=== PATIENT | male | born 1940 | race Caucasian/White ===

== ENCOUNTER → 2018-04-12 | Day surgery (SDC) | payer OTHER ==
[~2018-04-12] MED LIST: BUPIVACAINE 0.25% PF 10 ML VIAL ONE; EPINEPHRINE/PF 1 MG/ML AMP ONE; LIDOCAINE 1% MPF 5 ML VIAL ONE; LIDOCAINE 2% INJ, MPF 2 ML 1 ML ONE; NS 0.9% VIAL 10 ML ONE; PROPOFOL 200 MG/20 ML VIAL IV ONE; TETRACAINE HCL 0.5% 2ML OPTH ONE
[2018-04-12] MEDS: PHENYLEPHRINE 10% OPTH 5ML ONE ×3 (12:00→12:10)
[2018-04-12] MEDS: CYCLOPENTOLATE 1% OPTH 2 ML ONE ×3 (12:00→12:10)
[2018-04-12] MEDS: BSS PLUS 500 ML BOTTLE IRR ONE ×2 (12:14→12:43)
[2018-04-12] MEDS: EPINEPHRINE/PF 1 MG/ML AMP ONE ×2 (12:14→12:43)
[2018-04-12] MEDS: MOXIFLOXACIN HCL 10 DROPS/ML **OR USE OPTH ONE ×2 (12:14→12:43)
[2018-04-12] MEDS: DUOVISC 1 KIT OPTH ONE ×2 (12:14→12:43)
--- NOTE | 2018-04-12 13:22 | P.BOP ---
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
--- NOTE | 2018-04-13 00:43 | OP ---
Date of Procedure: 04/12/2018 Surgeon: Elsa Mathis MD Anesthesiologist: Kalina Townsend CRNA and Philippe Clinton M.D. Preoperative Diagnoses: Nuclear sclerotic cataract and corneal dystrophy, OD. Procedure: Phacoemulsification with intraocular lens, OD. Anesthesia: Per cataract surgery. Complications: None. Description Of Procedure: In day surgery, the patient was prepped with Betadine and draped. A conju nctival incision was made in the inferior nasal quadrant with Michael scissors. A sub-Tenon block c onsisting of a 1:1 mixture of 2% Xylocaine and 0.25% bupivacaine was placed through the conjunctival incision with a blunt cannula. A Honan balloon was placed over the eye and the patient was transferr ed to the operating room. In the operating room the patient was prepped and draped in the usual sterile fashion for ophthalmic surgery. A lid speculum was placed in the OD. Two paracentesis sites were made superiorly and infer iorly in the limbal cornea. Viscoat was placed in the anterior chamber and a crescent blade was used to make a corneal groove and tunnel, and a keratome was used to enter the anterior chamber. Provisc was placed in the anterior chamber and a 360 degree capsulotomy was performed with a cystitome. The lens was hydrodissected with BSS and rotated freely. The lens was removed with a stop and chop tech nique. A 23.64 phaco CDE was used to remove the lens. Residual cortex was removed with the irrigati on and aspiration. Provisc was placed in the capsular bag. A ZCB00 +19.5 diopter lens was placed in the capsular bag without complications. Irrigation and aspiration was used to remove residual visco elastic. The paracentesis sites were hydrated with BSS. The wound and paracentesis sites were inspe cted and found to be watertight. Vigamox 0.07 cc was placed intracamerally at the end of the procedu re. The eye was irrigated with balanced salt solution. The eye was patched with a soft cotton patch and Graham metal shield. The patient was returned to day surgery in good condition. Comments: BSS Plus was used. Extra Viscoat was used. The scleral incision was created after cuttin g the temporal conjunctiva with Michael scissors. Bipolar cautery was used at the wound and to reap proximate the conjunctiva. Discharge Instructions: Mr. Smith is discharged to home in good condition and is to follow up [facility] Dr. Mathis in the morning. NARESH/MELISSA Voice ID: [id number] Report ID: [id number]
== END | disposition home or self-care (01) ==
LOC: OR 07:28
PROVIDERS: ATTEND Ophthalmology Retina Specialist
PROC: 08RJ3JZ Replacement of Right Lens with Synthetic Substitute, Percutaneous Approach (ICD-10-PCS; principal; 2018-04-12 11:30)
DX: H25.11 Age-related nuclear cataract, right eye (principal); H18.51 Endothelial corneal dystrophy; I10 Essential (primary) hypertension; E78.00 Pure hypercholesterolemia, unspecified
CPT/HCPCS: J0171; J3490

== ENCOUNTER 2019-03-04 20:09 | Emergency (ER) | payer BC, OTHER ==
[2019-03-04 21:00] LABS: Absolute Lymphocytes (CBC) 1.6 K/uL (0.7-4.9); Basophils % 0.3 % (0-1.3); Eosinophils % 1.4 % (0-4.4); Hematocrit 44.5 % (39.6-49.0); Lymphocytes % 30.4 % (15.3-44.8); MPV 9.4 fL (7.6-11.3); Monocytes % 11.9 % (3.3-12.3); RBC Red Blood Cell Count 4.66 M/uL (4.33-5.43)
[2019-03-04 21:01] LABS: Protime INR 0.97
[2019-03-04 21:12] LABS: ALT/SGPT 24 U/L (12-78); AST/SGOT 17 U/L (15-37); Albumin 3.3 g/dL (3.4-5.0); Alkaline Phosphatase 88 U/L (45-117); BUN Blood Urea Nitrogen 24 mg/dL (7-18); Bicarbonate 26 mmol/L (21-32); Bilirubin Direct 0.1 mg/dL (0-0.2); Bilirubin Total 0.4 mg/dL (0.2-1.0); Glucose Level 148 mg/dL (74-106); Magnesium 2.3 mg/dL (1.8-2.4); NT PRO-BNP 70 pg/mL (<450); Protein, Total 6.3 g/dL (6.4-8.2); Sodium Level 142 mmol/L (136-145); Troponin (Emerg Dept Use Only) < 0.02 ng/mL (0.0-0.045)
[2019-03-04] MEDS ORDERED: NA CHLORIDE 0.9% 500 ML ONE (22:08)
--- NOTE | 2019-03-04 22:28 | EDPHYS ---
Physician Documentation [facility] Name: Luis Fernando Smith Age: 78 yrs Sex: Male : 1940 Arrival Date: 03/04/2019 Time: 20:12 Bed 27 Private MD: Vijay Khoury V ED Physician Portillo Chavez HPI: 03/04 20:46 This 78 yrs old Male presents to ER via Ambulatory with complaints of Arm snw Pain, Sweating. 20:46 The patient or guardian complains of pain, that is acute. The complaints affect the snw right bicep. Context: The problem was sustained at a while sitting at [employer], resulted from unknown cause. Onset: The symptoms/episode began/occurred suddenly. Modifying factors: The symptoms are alleviated by nothing. Associated signs and symptoms: Pertinent positives: mild dizziness and severe diaphoresis. Severity of symptoms: At their worst the symptoms were incapacitating, in the emergency department the symptoms have improved, markedly. The patient has not experienced similar symptoms in the past. The patient has not recently seen a physician, the patient's primary care provider is Dr. Dr. Khoury. Historical: - Allergies: 20:17 No Known Allergies; la1 - PMHx: 20:17 None; la1 - Immunization history:: Adult Immunizations up to date. - Social history:: Smoking status: Patient/guardian denies using tobacco. - Ebola Screening: : No symptoms or risks identified at this time. ROS: 20:43 Constitutional: Negative for fever, chills, and weight loss, Eyes: Negative for injury, snw pain, redness, and discharge, ENT: Negative for injury, pain, and discharge, Neck: Negative for injury, pain, and swelling, Cardiovascular: Negative for chest pain, palpitations, and edema, Respiratory: Negative for shortness of breath, cough, wheezing, and pleuritic chest pain, Abdomen/GI: Negative for abdominal pain, nausea, vomiting, diarrhea, and constipation, Back: Negative for injury and pain, Skin: Negative for injury, rash, and discoloration, Neuro: Negative for headache, weakness, numbness, tingling, and seizure, Psych: Negative for depression, anxiety, suicide ideation, homicidal ideation, and hallucinations. 20:43 MS/extremity: Positive for pain, of the right bicep, severe in nature that caused some dizziness and severe diaphoresis. Exam: 20:43 Constitutional: This is a well developed, well nourished patient who is awake, alert, snw and in no acute distress. Head/Face: Normocephalic, atraumatic. Eyes: Pupils equal round and reactive to light, extra-ocular motions intact. Lids and lashes normal. Conjunctiva and sclera are non-icteric and not injected. Cornea within normal limits. Periorbital areas with no swelling, redness, or edema. ENT: Nares patent. No nasal discharge, no septal abnormalities noted. Tympanic membranes are normal and external auditory canals are clear. Oropharynx with no redness, swelling, or masses, exudates, or evidence of obstruction, uvula midline. Mucous membranes moist. Neck: Trachea midline, no thyromegaly or masses palpated, and no cervical lymphadenopathy. Supple, full range of motion without nuchal rigidity, or vertebral point tenderness. No Meningismus. Chest/axilla: Normal chest wall appearance and motion. Nontender with no deformity. No lesions are appreciated. Cardiovascular: Regular rate and rhythm with a normal S1 and S2. No gallops, murmurs, or rubs. Normal PMI, no JVD. No pulse deficits. Respiratory: Lungs have equal breath sounds bilaterally, clear to auscultation and percussion. No rales, rhonchi or wheezes noted. No increased work of breathing, no retractions or nasal flaring. Abdomen/GI: Soft, non-tender, with normal bowel sounds. No distension or tympany. No guarding or rebound. No evidence of tenderness throughout. Back: No spinal tenderness. No costovertebral tenderness. Full range of motion. Skin: Warm, dry with normal turgor. Normal color with no rashes, no lesions, and no evidence of cellulitis. MS/ Extremity: Pulses equal, no cyanosis. Neurovascular intact. Full, normal range of motion. Neuro: Awake and alert, GCS 15, oriented to person, place, time, and situation. Cranial nerves II-XII grossly intact. Motor strength 5/5 in all extremities. Sensory grossly intact. Cerebellar exam normal. Normal gait. Psych: Awake, alert, with orientation to person, place and time. Behavior, mood, and affect are anxious Vital Signs: 20:17 BP 121 / 59; Pulse 68; Resp 16; Temp 97.4; Pulse Ox 98% on R/A; Weight 83.91 kg; Height la1 5 ft. 8 in. (172.72 cm); 20:40 BP 103 / 64 LA; ca1 20:40 BP 108 / 64 RA; ca1 20:40 Pulse 70; Resp 14 S; Pulse Ox 95% on R/A; ca1 22:25 BP 120 / 78; Pulse 70; Resp 16 S; Pulse Ox 97% on R/A; ca1 22:40 BP 116 / 69; Pulse 68; Resp 17 S; Temp 97.6(O); Pulse Ox 98% on R/A; ca1 20:17 Body Mass Index 28.13 (83.91 kg, 172.72 cm) la1 MDM: 20:25 Patient medically screened. snw 22:24 Data reviewed: vital signs, nurses notes. Data interpreted: Pulse oximetry: on room air snw is 95 %. Interpretation: acceptable. Counseling: I had a detailed discussion with the patient and/or guardian regarding: the historical points, exam findings, and any diagnostic results supporting the discharge/admit diagnosis, lab results, radiology results, the need for outpatient follow up, to return to the emergency department if symptoms worsen or persist or if there are any questions or concerns that arise at home. Response to treatment: the patient's symptoms have resolved after treatment. Special discussion: Based on the history and exam findings, there is no indication for further emergent testing or inpatient evaluation. I discussed with the patient/guardian the need to see the primary care provider for further evaluation of the symptoms. ED course: offered to call Dr. Khoury and admit pt for observation. Pt states he wants to go home and will return prn return of s/s or concerns.. 03/04 20:24 Order name: Basic Metabolic Panel; Complete Time: 21:13 snw 03/04 20:24 Order name: CBC with Diff; Complete Time: 21:13 snw 03/04 20:24 Order name: LFT's; Complete Time: 21:13 snw 03/04 20:24 Order name: Magnesium; Complete Time: 21:13 snw 03/04 20:24 Order name: NT PRO-BNP; Complete Time: 21:13 snw 03/04 20:24 Order name: PT-INR; Complete Time: 21:13 03/04 20:24 Order name: Bilateral blood pressure; Complete Time: 20:55 03/04 20:24 Order name: EKG; Complete Time: 20:24 03/04 20:24 Order name: Troponin (emerg Dept Use Only); Complete Time: 21:13 sn03/04 20:24 Order name: XRAY Chest (1 view) 03/04 20:32 Order name: Carotid Artery Bilateral US 03/04 20:32 Order name: CT Aorta for Dissection 03/04 20:45 Order name: CT Head Brain wo Cont 03/04 20:24 Order name: EKG - Nurse/Tech; Complete Time: 20:55 03/04 20:24 Order name: Cardiac monitoring; Complete Time: 20:55 03/04 20:24 Order name: IV Saline Lock; Complete Time: 20:55 03/04 20:24 Order name: Labs collected and sent; Complete Time: 20:55 03/04 20:24 Order name: O2 Per Protocol; Complete Time: 20:55 03/04 20:24 Order name: O2 Sat Monitoring; Complete Time: 20:55 snw Administered Medications: 21:57 Drug: NS 0.9% 500 ml Route: IV; Rate: bolus; Site: left antecubital; cr4 22:30 Follow up: Response: No adverse reaction; IV Status: Completed infusion ca1 Disposition: 03/05 04:01 Co-signature as Attending Physician, Portillo Chavez MD. Disposition: 03/04/19 22:28 Discharged to Home. Impression: Pain in right arm, Hiatal Hernia, Mild Renal Insufficiency. - Condition is Stable. - Discharge Instructions: Nonspecific Chest Pain, Hiatal Hernia, Musculoskeletal Pain, Heat Therapy. - Medication Reconciliation Form, Thank You Letter, Antibiotic Education, Prescription Opioid Use form. - Follow up: Vijay Khoury MD; When: 2 - 3 days; Reason: Recheck today's complaints, Continuance of care, Re-evaluation by your physician. Follow up: Emergency Department; When: As needed; Reason: Worsening of condition. Signatures: Dispatcher [employer] EDTammy Don, AUTO PAINTER HELPER-C AUTO PAINTER HELPER-Csnw Laura Novak, RN RN cr4 Attema, Rogelio, RN RN la1 Portillo Chavez MD MD gs Ackeith, Christie RN RN ca1 Corrections: (The following items were deleted from the chart) 03/04 22:42 22:28 03/04/2019 22:28 Discharged to Home. Impression: Pain in right arm; Hiatal ca1 Hernia; Mild Renal Insufficiency. Condition is Stable. Forms are Medication Reconciliation Form, Thank You Letter, Antibiotic Education, Prescription Opioid Use. Follow up: Vijay Khoury; When: 2 - 3 days; Reason: Recheck today's complaints, Continuance of care, Re-evaluation by your physician. Follow up: Emergency Department; When: As needed; Reason: Worsening of condition. snw
--- NOTE | 2019-03-04 22:28 | ER ---
Nurse's Notes [facility] Name: Luis Fernando Smith Age: 78 yrs Sex: Male : 1940 Arrival Date: 03/04/2019 Time: 20:12 Bed 27 Private MD: Vijay Khoury V Diagnosis: Pain in right arm;Hiatal Hernia;Mild Renal Insufficiency Presentation: 03/04 20:15 Presenting complaint: Patient states: I was at restoration about 3-40 minutes ago and got a la1 bad pain on the lateral aspect of my right upper arm. I stated to get dizzy and sweating profusely. I took a few breaths and started to feel better but I am still having some mild pain. Transition of care: patient was not received from another setting of care. Onset of symptoms was March 04, 2019. Risk Assessment: Do you want to hurt yourself or someone else? Patient reports no desire to harm self or others. Initial Sepsis Screen: Does the patient meet any 2 criteria? No. Patient's initial sepsis screen is negative. Does the patient have a suspected source of infection? No. Patient's initial sepsis screen is negative. Care prior to arrival: None. 20:15 Method Of Arrival: Ambulatory la1 20:15 Acuity: GABE 2 la1 Historical: - Allergies: 20:17 No Known Allergies; la1 - PMHx: 20:17 None; la1 - Immunization history:: Adult Immunizations up to date. - Social history:: Smoking status: Patient/guardian denies using tobacco. - Ebola Screening: : No symptoms or risks identified at this time. Screenin:40 Abuse screen: Denies threats or abuse. Denies injuries from another. Nutritional ca1 screening: No deficits noted. Tuberculosis screening: No symptoms or risk factors identified. Fall Risk IV access (20 points). Assessment: 20:40 General: Appears in no apparent distress. comfortable, Behavior is calm, cooperative, ca1 appropriate for age. Pain: Denies pain. Pain began suddenly, 1 hour ago. pt denies pain now. But an hour ago he felt pain on his R arm suddenly. a pain that he describes as pain that "he has never felt in his life before. It went away now. But at the time, he also felt cold and sweat profusely. Neuro: Level of Consciousness is awake, alert, obeys commands, Oriented to person, place, time, situation. Cardiovascular: Heart tones S1 S2 present Capillary refill < 3 seconds Patient's skin is warm and dry. Pulses are all present. Rhythm is sinus rhythm. Respiratory: Airway is patent Breath sounds are clear bilaterally. GI: Abdomen is round non-distended, Bowel sounds present X 4 quads. Abd is soft and non tender X 4 quads. Patient currently denies nausea, vomiting. : No deficits noted. No signs and/or symptoms were reported regarding the genitourinary system. EENT: No deficits noted. No signs and/or symptoms were reported regarding the EENT system. Derm: Skin is intact, is healthy with good turgor, Skin is pink, warm \\T\\ dry. Musculoskeletal: Circulation, motion, and sensation intact. Capillary refill < 3 seconds, Range of motion: intact in all extremities. 22:22 Reassessment: Patient appears in no apparent distress at this time. Patient and/or ca1 family updated on plan of care and expected duration. Pain level reassessed. Patient is alert, oriented x 3, equal unlabored respirations, skin warm/dry/pink. Tammy SURGERY ATTENDANT at bedside. 22:40 Reassessment: Patient appears in no apparent distress at this time. Patient is alert, ca1 oriented x 3, equal unlabored respirations, skin warm/dry/pink. Vital Signs: 20:17 BP 121 / 59; Pulse 68; Resp 16; Temp 97.4; Pulse Ox 98% on R/A; Weight 83.91 kg; Height la1 5 ft. 8 in. (172.72 cm); 20:40 BP 103 / 64 LA; ca1 20:40 BP 108 / 64 RA; ca1 20:40 Pulse 70; Resp 14 S; Pulse Ox 95% on R/A; ca1 22:25 BP 120 / 78; Pulse 70; Resp 16 S; Pulse Ox 97% on R/A; ca1 22:40 BP 116 / 69; Pulse 68; Resp 17 S; Temp 97.6(O); Pulse Ox 98% on R/A; ca1 20:17 Body Mass Index 28.13 (83.91 kg, 172.72 cm) la1 ED Course: 20:12 Patient arrived in ED. do 20:12 Vijay Khoury MD is Private Physician. do 20:16 Triage completed. la1 20:17 Arm band placed on right wrist. la1 20:23 Tammy Ochoa FNP-C is [facility]. snw 20:23 Portillo Chavez MD is Attending Physician. snw 20:30 Radiology exam delayed due to us tech with OUT-pt exam. sg3 20:37 Radiology exam delayed due to lab results not completed at this time. (BUN/Creatinine) vm2 IV insertion attempt and/or patient not having appropriate IV at this time. 20:39 XRAY Chest (1 view) In Process Unspecified. EDMS 20:40 Patient has correct armband on for positive identification. Placed in gown. Bed in low ca1 position. Call light in reach. Side rails up X 1. monitoring and evaluation advisor on. Pulse ox on. NIBP on. Warm blanket given. 20:40 No provider procedures requiring assistance completed. Inserted saline lock: 22 gauge ca1 in left antecubital area, using aseptic technique. Blood collected. 20:54 Christie Armijo, RN is Primary Nurse. ca1 21:07 Radiology exam delayed due to lab results not completed at this time. (BUN/Creatinine). nj 21:44 CT Aorta for Dissection In Process Unspecified. EDMS 21:44 CT Head Brain wo Cont In Process Unspecified. EDMS 22:09 Carotid Artery Bilateral US In Process Unspecified. EDMS 22:12 Ultrasound completed. Patient tolerated well. sg3 22:26 Vijay Khoury MD is Referral Physician. snw 22:41 IV discontinued, intact, bleeding controlled, No redness/swelling at site. Pressure ca1 dressing applied. Administered Medications: 21:57 Drug: NS 0.9% 500 ml Route: IV; Rate: bolus; Site: left antecubital; cr4 22:30 Follow up: Response: No adverse reaction; IV Status: Completed infusion ca1 Outcome: 22:28 Discharge ordered by . snw 22:41 Discharged to home ambulatory, with significant other. ca1 22:41 Condition: stable 22:41 Discharge instructions given to patient, Instructed on discharge instructions, follow up and referral plans. Demonstrated understanding of instructions, follow-up care. 22:42 Patient left the ED. ca1 Signatures: Dispatcher [employer] EDMS Tammy Ochoa FNP-C RIGHT OF WAY MAN-Csnw Laura Novak, RN RN cr4 Rogelio Desai RN RN la1 Claudia Wilson, Natalie Powell Sylvie Stephenson 3 Christie Armijo RN RN ca1 Corrections: (The following items were deleted from the chart) 22:12 20:30 Ultrasound completed. Patient tolerated well. sg3 sg3 22:25 21:40 Reassessment: Patient appears in no apparent distress at this time. Patient ca1 and/or family updated on plan of care and expected duration. Pain level reassessed. Patient is alert, oriented x 3, equal unlabored respirations, skin warm/dry/pink. ca1
--- NOTE | 2019-03-05 09:57 | EKG ---
Test Date: 2019-03-04 Test Time: 20:49:01 Sales Floor Team Leader: HAMILTON MEASUREMENT RESULTS: Intervals: Rate: 67 DC: 190 QRSD: 90 QT: 392 QTc: 414 [place]: P: 51 DC: 190 QRS: -9 T: 19 INTERPRETIVE STATEMENTS: Normal sinus rhythm Possible Lateral infarct, age undetermined Cannot rule out Inferior infarct, age undetermined Abnormal ECG No previous ECG available for comparison Electronically Signed On 03-05-19 09:56:40 CDT by Luis Campbell
--- NOTE | 2019-03-05 10:49 | RAD REPORT ---
EXAM DESCRIPTION: US - CP - 03/04/2019 10:08 pm CLINICAL HISTORY: DIZZINESS Headache, dizziness, drowsiness COMPARISON: EXT VENOUS UNI LTD dated 06/12/2014No comparisons TECHNIQUE: Real-time sonographic evaluation of both carotid systems was performed. Doppler interroga tion was performed with waveform tracing bilaterally. FINDINGS: Normal high resistance waveforms are noted in both external carotid arteries. The common c arotid arteries and internal carotid arteries show normal low resistance waveforms. No significant plaque formation is seen. Peak systolic and end diastolic velocity values and the ICA/ CCA ratios are in the non-hemodynamically significant range. Antegrade flow seen in both vertebral arteries. IMPRESSION: No significant atherosclerotic changes noted. No evidence of a hemodynamically significant stenosis.
--- NOTE | 2019-03-05 11:07 | RAD REPORT ---
EXAM DESCRIPTION: RAD - Chest Single View - 03/04/2019 8:39 pm CLINICAL HISTORY: CHEST PAIN Chest pain. COMPARISON: No comparisons FINDINGS: Portable technique limits examination quality. The lungs are grossly clear. The heart is normal in size. No displaced fractures. Small hiatal hernia . IMPRESSION: No acute intrathoracic process suspected.
--- NOTE | 2019-03-07 12:42 | RAD REPORT ---
EXAM DESCRIPTION: Head Brain Wo Cont CLINICAL HISTORY: 78 years Male DIZZINESS COMPARISON: None TECHNIQUE: Contiguous axial images of the brain were obtained without the administration of intraven ous contrast.This exam was performed according to our departmental dose-optimization program which in cludes use of Automated Exposure Control, adjustment of the mA and/or kV according to patient size an d/or use of iterative reconstruction technique. FINDINGS: Brain: No acute intracranial hemorrhage. No extra-axial collection. No mass effect or nataliia iation. Mild prominence of the sulci and cisterns Confluent periventricular and subcortical white m atter hypodensity is noted. Ventricles: Allowing for underlying cerebral volume loss, ventricular size appears within normal limi ts.. Globes and orbits: Prior right cataract surgery. No acute abnormality. Bones: No acute osseous finding. Paranasal sinuses: Paranasal sinuses are clear. Mastoid air cells: Well pneumatized. Soft tissues: Within normal limits IMPRESSION: No acute intracranial hemorrhage, hydrocephalus or herniation. Cerebral volume loss and chronic small vessel ischemic changes. If persistent clinical concern for ac stebbins ischemia, consider MRI brain without contrast for further evaluation. Electronically signed by: Beto Edge DO 03/04/2019 9:49 PM CDT Due to temporary technical issues with the PACS/Fluency reporting system, reports are being signed by the in house radiologist as a courtesy to ensure prompt reporting. The interpreting radiologist is f ully responsible for the content of the report.
--- NOTE | 2019-03-07 12:44 | RAD REPORT ---
EXAM DESCRIPTION: CT Chest With Intravenous Contrast. CT Abdomen and Pelvis With Intravenous Con trast. CLINICAL HISTORY: 78 years old and is Male; DISSECTION TECHNIQUE: Axial computed tomography images of the chest, abdomen and pelvis with intravenous contra st during the arterial phase of enhancement. Sagittal and coronal reformatted images were created a nd reviewed. Sagittal and coronal reformatted images were created and reviewed. This CT exam was performed using one or more of the following dose reduction techniques: automated exposure control, adjustment of the mA and/or kV according to patient size, and/or use of iterative reconstruction catia hnique. Coronal and sagittal reformatted images were created and reviewed. COMPARISON: No relevant prior studies available. FINDINGS: Limitations: None. VASCULATURE: Aorta: No significant abnormality noted. No aortic aneurysm. No dissection. Pulmonary arteries: Unremarkable as visualized. No pulmonary embolism is identified. Great vessels of aortic arch: No significant abnormality noted. No dissection. No arterial o cclusion or significant stenosis. Celiac trunk and mesenteric arteries: No significant abnormality noted. No occlusion or signif icant stenosis. Renal arteries: No significant abnormality noted. No occlusion or significant stenosis. Iliac arteries: No significant abnormality noted. No occlusion or significant stenosis. CHEST: Lungs: Linear atelectasis present in both lung bases. Pleural space: Unremarkable. No significant effusion. No pneumothorax. Heart: Unremarkable. No cardiomegaly. No significant pericardial effusion. Mediastinum: Small to moderate sliding hiatal hernia noted. ABDOMEN: Liver: There is a 3 mm triangular vascular nodule in the posterior aspect of the right hepatic l obe image 83 possibly a small flash filling hemangioma. Benign 2.2 cm diameter left hepatic lobe cy st. Gallbladder and bile ducts: Unremarkable. No calcified stones. No ductal dilation. Pancreas: Unremarkable. No ductal dilation. No mass. Spleen: Unremarkable. No splenomegaly. Adrenals: Unremarkable. No mass. Kidneys and ureters: There is a 2.2 cm diameter parapelvic cyst left kidney. Right kidney appe ars normal. No stones or hydronephrosis. No solid mass. Stomach and bowel: Moderate colonic stool present. There is colonic diverticulosis. No diver ticulitis. No obstruction. PELVIS: Appendix: No findings to suggest acute appendicitis. Bladder: Unremarkable. No mass. Reproductive: Unremarkable as visualized. CHEST, ABDOMEN and PELVIS: Intraperitoneal space: Unremarkable. No significant fluid collection. No free air. Bones/joints: Degenerative changes noted in the spine. There is lumbar stenosis L3-L4. No acute fracture. No dislocation. Soft tissues: Bilateral inguinal hernias noted containing fat. Lymph nodes: Unremarkable. No enlarged lymph nodes. IMPRESSION: 1. No aortic aneurysm or dissection. 2. Chronic changes as above. Electronically signed by: Ijeoma Muller MD 03/04/2019 10:20 PM CDT Due to temporary technical issues with the PACS/Fluency reporting system, reports are being signed by the in house radiologist as a courtesy to ensure prompt reporting. The interpreting radiologist is f ully responsible for the content of the report.
== END 2019-03-04 22:42 | disposition home or self-care (01) ==
LOC: ER 20:09
DX: M79.621 Pain in right upper arm (principal); N28.9 Disorder of kidney and ureter, unspecified; K44.9 Diaphragmatic hernia without obstruction or gangrene
CPT/HCPCS: 36415; 70450; 71045; 71275; 74175; 80048; 80076; 83735; 83880; 84484; 85025; 85610; 93005; 93880; 96360; 99284; Q9967

== ENCOUNTER 2019-05-02 07:56 | Day surgery (SDC) | payer BC, OTHER ==
[2019-05-02] MEDS ORDERED: NA CHLORIDE 0.9% 500 ML ONE (08:16)
[2019-05-02] MEDS ORDERED: PHENYLEPHRINE 10% OPTH 5ML ONE (08:16)
[2019-05-02] MEDS ORDERED: LIDOCAINE 2% MPF 5 ML VIAL ONE (08:16)
[2019-05-02] MEDS ORDERED: CYCLOPENTOLATE 1% OPTH 2 ML ONE (08:17)
[2019-05-02] MEDS ORDERED: BUPIVACAINE 0.25% PF 10 ML VIAL ONE (08:17)
[2019-05-02] MEDS ORDERED: TETRACAINE HCL 0.5% 4ML OPTH ONE (08:17)
[2019-05-02] MEDS ORDERED: LIDOCAINE HCL/PF 3.5% OPTH GEL ONE (08:24)
[2019-05-02] MEDS ORDERED: CYCLOPENTOLATE 1% OPTH 2 ML OPTH ONE ×2 (08:39→08:45)
[2019-05-02] MEDS ORDERED: PHENYLEPHRINE 10% OPTH 5ML OPTH ONE ×2 (08:39→08:45)
[2019-05-02] MEDS ORDERED: FENTANYL CITR 100 MCG/2 ML ONE (09:34)
[2019-05-02] MEDS ORDERED: MIDAZOLAM HCL 2 MG/2 ML INJ ONE ×2 (09:34→09:51)
[2019-05-02] MEDS ORDERED: NS 0.9% VIAL 10 ML ONE (09:58)
[2019-05-02] MEDS ORDERED: DUOVISC 1 KIT OPTH ONE (09:58)
[2019-05-02] MEDS ORDERED: LIDOCAINE 1% MPF 2 ML AMPULE ONE (09:59)
[2019-05-02] MEDS ORDERED: LIDOCAINE 2% INJ, MPF 2 ML 1 ML ONE (09:59)
[2019-05-02] MEDS ORDERED: MOXIFLOXACIN HCL 10 DROPS/ML **OR USE OPTH ONE (09:59)
--- NOTE | 2019-05-02 10:41 | P.BOP ---
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
[2019-05-02] MEDS ORDERED: BSS PLUS 500 ML BOTTLE IRR ONE (10:51)
[2019-05-02] MEDS ORDERED: EPINEPHRINE/PF 1 MG/ML AMP ONE (10:51)
[2019-05-02 11:02] VITALS: BP 137/65; TEMP 96.9; O2SAT 96
--- NOTE | 2019-05-02 21:06 | OP ---
Date of Procedure: 05/02/2019 Surgeon: Elsa Mathis MD Anesthesiologist: NAA Pike and James Lyle MD. Preoperative Diagnosis: Nuclear sclerotic cataract and Fuchs dystrophy, left eye. Operation Performed: Phacoemulsification with intraocular lens implant, left eye. Anesthesia: Per cataract surgery. Complications: None. Description Of Procedure: In the operating room the patient was prepped and draped in the usual ster ile fashion for ophthalmic surgery. A lid speculum was placed in the left eye. Two paracentesis sit es were made superiorly and inferiorly in the limbal cornea. Viscoat was placed in the anterior jose m amish and a crescent blade was used to make a corneal groove and tunnel, and a keratome was used to ent er the anterior chamber. Provisc was placed in the anterior chamber and a 360 degree capsulotomy was performed with a cystitome. The lens was hydrodissected with BSS and rotated freely. The lens was removed with a stop and chop technique. 14.82 Phaco CDE was used to remove the lens. Residual cheyanne x was removed with the irrigation and aspiration. Provisc was placed in the capsular bag. A ZCB00 + 21.0 lens was placed in the capsular bag without complications. Irrigation and aspiration was used t o remove residual viscoelastic. The paracentesis sites were hydrated with BSS. The wound and parace ntesis sites were inspected and found to be watertight. Vigamox 0.07 cc was placed intracamerally at the end of the procedure. The eye was irrigated with balanced salt solution. The eye was patched w ith a soft cotton patch and Graham metal shield. The patient was returned to day surgery in good condition. Comments: Akten was placed in the eye in day surgery and then irrigated out of the eye with BSS in t he OR. Preservative-free 1% lidocaine was placed in the anterior chamber. This was followed by 1:50 00 epinephrine. Both were placed prior to Viscoat. BSS Plus was used. A scleral incision was used after injecting 2% xylocaine subconjunctivally temporally. Extra Viscoat was used. Discharge Instructions: Mr. Smith is discharged to home in good condition and is to follow up [facility] Dr. Mathis in the morning. NARESH/MELISSA Voice ID: [id number] Report ID: [id number]
== END 2019-05-02 11:10 | disposition home or self-care (01) ==
LOC: OR 07:56
PROVIDERS: ATTEND Ophthalmology Retina Specialist
PROC: 08RK3JZ Replacement of Left Lens with Synthetic Substitute, Percutaneous Approach (ICD-10-PCS; principal; 2019-05-02 10:15)
DX: H25.12 Age-related nuclear cataract, left eye (principal); H18.51 Endothelial corneal dystrophy; H04.123 Dry eye syndrome of bilateral lacrimal glands; H43.813 Vitreous degeneration, bilateral; I10 Essential (primary) hypertension; E78.00 Pure hypercholesterolemia, unspecified; K21.9 Gastro-esophageal reflux disease without esophagitis; M19.90 Unspecified osteoarthritis, unspecified site; Z83.3 Family history of diabetes mellitus; Z83.518 Family history of other specified eye disorder
CPT/HCPCS: 66984; J0171; J2250; J3010; J2001; J3490